=== PATIENT | male | born 1970 | race Caucasian/White ===

== ENCOUNTER 2019-05-04 18:20 | Emergency (ER) | payer OTHER ==
--- NOTE | 2019-05-04 21:51 | ER Document Report ---
ED Fall - General Chief Complaint: Laceration Stated Complaint: FALL/HEAD PAIN Time Seen by Provider: 05/04/19 19:29 Mode of Arrival: Medic Information source: Patient Notes: Patient is a 40-year-old male presenting to the emergency department from home via EMS with complaints of fall. Patient's mother reports that he rolled out of his bed and stretch truck the top of his head on his nightstand. EMS reports the patient was very combative so they had to give him medications for transport. TRAVEL OUTSIDE OF THE [place] IN LAST 30 DAYS: No - Related data Allergies/Adverse Reactions: No Known Allergies Allergy (Verified 02/28/16 14:38) Past Medical History - General Information source: Patient - Social History Smoking Status: Current Every Day Smoker Frequency of alcohol use: Heavy Drug Abuse: None Family History: None Patient has suicidal ideation: No Patient has homicidal ideation: No - Past Medical History Cardiac Medical History: Reports: Hx Hypertension Traumatic Medical History: Reports: Hx Fractures Surgical Hx: Negative - Immunizations Hx Diphtheria, Pertussis, Tetanus Vaccination: Yes Review of Systems - Review of Systems Constitutional: No symptoms reported EENT: No symptoms reported Cardiovascular: No symptoms reported Respiratory: No symptoms reported Gastrointestinal: No symptoms reported Genitourinary: No symptoms reported Male Genitourinary: No symptoms reported Musculoskeletal: No symptoms reported Skin: See HPI Hematologic/Lymphatic: No symptoms reported Neurological/Psychological: No symptoms reported Physical Exam - Vital signs Vitals: Pulse Resp BP 115 H 22 H 141/99 H 05/04/19 18:38 05/04/19 18:38 05/04/19 18:38 - Notes Notes: PHYSICAL EXAMINATION: GENERAL: Well-nourished. HEAD: 2 cm laceration to anterior scalp. EYES: Pupils equal round and reactive to light, extraocular movements intact, sclera anicteric, conjunctiva are normal. ENT: Nares patent, oropharynx clear without exudates. Moist mucous membranes. NECK: Normal range of motion, supple without lymphadenopathy LUNGS: Breath sounds clear to auscultation bilaterally and equal. No wheezes rales or rhonchi. HEART: Regular rate and rhythm without murmurs ABDOMEN: Soft, nontender, nondistended abdomen. No guarding, no rebound. No masses appreciated. Musculoskeletal: Normal range of motion, no pitting or edema. No cyanosis. NEUROLOGICAL: Cranial nerves grossly intact. Normal speech, normal gait. Normal sensory, motor exams PSYCH: angry, agressive SKIN: Warm, Dry, normal turgor, no rashes or lesions noted. See above. Course - Re-evaluation Re-evalutation: Patient was initially very aggressive at time of arrival, he was placed in four- point restraints. After several hours of rest patient has now awoken is alert, oriented, and speaking in full and complete sentences. Patient has allowed us to evaluate his scalp wound. This does not need closure. It is approximately 2 cm and very superficial. There is no active bleeding noted. Patient requesting to be discharged home. Patient calling for a ride. Patient is walking in a straight line with a steady gait, he is alert, oriented x4. - Vital Signs Vital signs: Temp Pulse Resp BP Pulse Ox 81 22 H 141/99 H 93 05/04/19 18:41 05/04/19 18:38 05/04/19 18:38 05/04/19 18:41 Discharge - Discharge Clinical Impression: Laceration Alcohol intoxication Qualifiers: Complication of substance-induced condition: uncomplicated Qualified Code(s): F10.920 - Alcohol use, unspecified with intoxication, uncomplicated Condition: Stable Disposition: HOME, SELF-CARE Additional Instructions: You were seen in the emergency department tonight after a fall. You sustained a laceration to your scalp. Please take Tylenol to for any pain or fever. Please return to the emergency department for any new or worsening symptoms, we are happy to reevaluate any time.
[2019-05-05 07:50] VITALS: BP 150/91
== END 2019-05-05 07:57 | disposition home or self-care (01) ==
LOC: ER 18:20
DX: S01.01XA Laceration without foreign body of scalp, initial encounter (principal); W06.XXXA Fall from bed, initial encounter; W22.03XA Walked into furniture, initial encounter; Y92.003 Bedroom of unspecified non-institutional (private) residence as the place of occurrence of the external cause; F10.120 Alcohol abuse with intoxication, uncomplicated; F17.200 Nicotine dependence, unspecified, uncomplicated; I10 Essential (primary) hypertension; Z78.1 Physical restraint status
CPT/HCPCS: 99284

== ENCOUNTER 2019-08-31 11:25 | Inpatient (IN) | payer SELFPAY ==
--- NOTE | 2019-08-31 11:34 | ER Document Report ---
ED Medical Screen (RME) - General Stated Complaint: POSSIBLE JAUNDICE - DR REFERRED Time Seen by Provider: 08/31/19 11:33 Information source: Patient - Patient referred from [facility] in [place] for apparent jaundice. TRAVEL OUTSIDE OF THE [place] IN LAST 30 DAYS: No - Related Data Allergies/Adverse Reactions: No Known Allergies Allergy (Verified 08/31/19 11:32) Past Medical History - Past Medical History Cardiac Medical History: Reports: Hx Hypertension Traumatic Medical History: Reports: Hx Fractures - Immunizations Hx Diphtheria, Pertussis, Tetanus Vaccination: Yes Physical Exam - HEENT Head: Normocephalic, Atraumatic Eyes: Normal Pupils: PERRL
[2019-08-31] MEDS ORDERED: NORMAL SALINE 1000 ML 1,000 ML IV PRN (11:35)
[2019-08-31 13:53] LABS: ABSOLUTE BASOPHILS # (AUTO) 0.1 10^3/uL (0.0-0.2); ABSOLUTE LYMPHOCYTES (AUTO) 1.2 10^3/uL (0.5-4.7); ABSOLUTE MONOCYTES (AUTO) 0.9 10^3/uL (0.1-1.4); ABSOLUTE NEUT (AUTO) 5.1 10^3/uL (1.7-8.2); BASOPHILS % (AUTO) 1.9 % (0-2); EOSINOPHILS % (AUTO) 0.6 % (0-6); HEMOGLOBIN 10.9 g/dL (13.5-17.0); LYMPHOCYTES % (AUTO) 16.9 % (13-45); MEAN CORPUSCULAR VOLUME 103 fl (80-97); MONOCYTES % (AUTO) 11.6 % (3-13); PLATELET COUNT 203 10^3/uL (150-450); RED BLOOD COUNT 3.11 10^6/uL (4.35-5.55); RED CELL DISTRIBUTION WIDTH 21.6 % (11.5-14.0); TOTAL CELLS COUNTED % (AUTO) 100 %; WHITE BLOOD COUNT 7.4 10^3/uL (4.0-10.5)
[2019-08-31 13:59] LABS: ALBUMIN 3.4 g/dL (3.5-5.0); ALKALINE PHOSPHATASE 163 U/L (38-126); ANION GAP 10 (5-19); ASPARTATE AMINO TRANSFERASE 190 U/L (17-59); BILIRUBIN,DIRECT 7.1 mg/dL (0.0-0.4); BILIRUBIN,TOTAL 9.6 mg/dL (0.2-1.3); BLOOD UREA NITROGEN 17 mg/dL (7-20); CALCIUM 8.1 mg/dL (8.4-10.2); CARBON DIOXIDE 21 mmol/L (22-30); CHLORIDE 101 mmol/L (98-107); GLUCOSE 107 mg/dL (75-110); POTASSIUM 4.4 mmol/L (3.6-5.0); TOTAL PROTEIN 7.1 g/dL (6.3-8.2)
--- NOTE | 2019-08-31 15:28 | RADIOLOGY REPORT (SQ) ---
EXAM DESCRIPTION: CT ABD/PELVIS WITH IV ONLY COMPLETED DATE/TIME: 08/31/2019 3:10 pm REASON FOR STUDY: jaundice COMPARISON: None. TECHNIQUE: CT scan of the abdomen and pelvis performed using helical scanning technique with dynamic intravenous contrast injection. No oral contrast. Images reviewed with lung, soft tissue, and bone windows. Reconstructed coronal and sagittal MPR images reviewed. Delayed images for evaluation of the urinary system also acquired. All images stored on PACS. All CT scanners at this facility use dose modulation, iterative reconstruction, and/or weight based d osing when appropriate to reduce radiation dose to as low as reasonably achievable (ALARA). [facility]: Dose Right [facility]: CareDose [facility]: Dose Right [facility]: Teradose 4D [facility]: Chiasma CONTRAST TYPE AND DOSE: contrast/concentration: Isovue 350.00 mg/ml; Total Contrast Delivered: 100.0 ml; Total Saline Delivered: 56.8 ml RENAL FUNCTION: Creatinine 0.7 RADIATION DOSE: CT Rad equipment meets quality standard of care and radiation dose reduction techniq ues were employed. CTDIvol: 16.7 - 18.3 mGy. DLP: 1854 mGy-cm.. LIMITATIONS: None. FINDINGS: LOWER CHEST: Moderate right, trace left pleural effusions. LIVER: Hepatomegaly with diffuse decreased attenuation from fatty infiltration. Normal enhancement o f the hepatic veins and portal veins. Recannulized umbilical vein. SPLEEN: Normal size PANCREAS: No masses. No significant calcifications. No adjacent inflammation or peripancreatic fluid collections. Pancreatic duct not dilated. GALLBLADDER: Stones in the gallbladder. No gross gallbladder wall thickening ADRENAL GLANDS: No significant masses or asymmetry. RIGHT KIDNEY AND URETER: No solid masses. No significant calcifications. No hydronephrosis or hyd roureter. LEFT KIDNEY AND URETER: No solid masses. No significant calcifications. No hydronephrosis or hydr oureter. AORTA AND VESSELS: No aneurysm. No dissection. Renal arteries, SMA, celiac without stenosis. RETROPERITONEUM: No retroperitoneal adenopathy, hemorrhage or masses. BOWEL AND PERITONEAL CAVITY: Moderate ascites. No CT evidence of bowel obstruction or free intraperi toneal air. APPENDIX: Not identified PELVIS: Moderate free pelvic fluid. Urinary bladder, rectum unremarkable. No adenopathy ABDOMINAL WALL: No masses. No hernias. BONES: No significant or acute findings. OTHER: Moderate ascites IMPRESSION: Hepatomegaly with marked decreased attenuation of the liver from fatty infiltration. Ascites and recannulized umbilical vein from portal hypertension Moderate right, trace left pleural effusion TECHNICAL DOCUMENTATION: JOB ID: [id number] Quality ID # [id number]: Final reports with documentation of one or more dose reduction techniques (e.g., Au tomated exposure control, adjustment of the mA and/or kV according to patient size, use of iterative reconstruction technique) 2010 [employer]- All Rights Reserved Reading location - IP/workstation name: [email or web address]
[2019-08-31] MEDS ORDERED: PROMETHAZINE HCL INJ 25 MG/1 ML VIAL IV PRN (15:45)
[2019-08-31] MEDS ORDERED: TEMAZEPAM 7.5 MG CAPSULE PO PRN (15:45)
[2019-08-31] MEDS ORDERED: OXYCODONE-ACETAMINOPHEN 5-325 MG TABLET PO PRN (15:45)
[2019-08-31] MEDS ORDERED: ACETAMINOPHEN 325 MG TABLET PO PRN (15:45)
[2019-08-31] MEDS ORDERED: ONDANSETRON HCL INJ/PF 4 MG/2 ML SDV IV PRN (15:45)
[2019-08-31] MEDS ORDERED: LEVALBUTEROL HCL NEB 0.63 MG/3 ML AMPUL NEB PRN (15:45)
--- NOTE | 2019-08-31 15:47 | ER Document Report ---
ED General - General Chief Complaint: Breathing Difficulty Stated Complaint: POSSIBLE JAUNDICE - DR REFERRED Time Seen by Provider: 08/31/19 11:33 Primary Care Provider: BLANCA DAILY PA-C [Primary Care Provider] - Follow up as needed TRAVEL OUTSIDE OF THE [place] IN LAST 30 DAYS: No - HPI Notes: Patient is a 49-year-old male with a long history of alcohol dependence who presents to the emergency department for evaluation of swelling. He went to see his primary care provider and Babak, who told him "you will be within the week if you do not go to the hospital." The patient states he has had increased swelling of the abdomen and legs over the last week or so. He really had not noticed the yellowing of his skin and eyes. He admits to drinking alcohol daily. He states he had 3 glasses of wine last night, and he has done so "his entire life." He denies the use of any other illicit drugs. He states he did have a seizure at some point last year. He denies any hallucinations, no sense of shakiness at this time. No melena or hematochezia. - Related Data Allergies/Adverse Reactions: No Known Allergies Allergy (Verified 08/31/19 11:32) Past Medical History - General Information source: Patient - Patient referred from [facility] in [facility] for apparent jaundice. - Social History Smoking Status: Current Every Day Smoker Chew tobacco use (# tins/day): No Frequency of alcohol use: Heavy Drug Abuse: None Family History: None Patient has suicidal ideation: No Patient has homicidal ideation: No - Past Medical History Cardiac Medical History: Reports: Hx Hypertension Traumatic Medical History: Reports: Hx Fractures - Immunizations Hx Diphtheria, Pertussis, Tetanus Vaccination: Yes Review of Systems - Review of Systems Constitutional: Weakness Gastrointestinal: See HPI Musculoskeletal: See HPI -: Yes All other systems reviewed and negative Physical Exam - Vital signs Vitals: Temp Pulse Resp BP Pulse Ox 98.4 F 114 H 18 118/81 100 08/31/19 11:33 08/31/19 11:33 08/31/19 11:33 08/31/19 11:33 08/31/19 11:33 - Notes Notes: This is a 49-year-old male who appears much older than his stated age. He smells strongly of cigarette smoke. Vital signs reviewed, please refer to chart. Head is normocephalic, atraumatic. Pupils equal round, reactive to light. Neck is supple without meningismus. Heart is regular rate and rhythm. Lungs are clear to auscultation bilaterally. Abdomen is distended with pitting edema to the skin, nontender, normoactive bowel sounds throughout. Extremities without cyanosis, clubbing. He has 3+ pitting edema to the thighs bilaterally. Posterior calves are nontender. Peripheral pulses are equal. Skin is warm and dry. Patient is awake, alert, neurological exam is nonfocal. Course - Re-evaluation Re-evalutation: 08/31/19 15:52 Patient is a 49-year-old male with a long history of alcohol dependence who presents to the emergency department for evaluation of swelling. His findings are consistent with liver failure. His total bilirubin is up significantly. He will need treatment for possible alcohol withdrawal, medical stabilization of his elevated bilirubins. He is amenable to admission. I spoke with Dr. Lopez, he will be admitted for further care. - Vital Signs Vital signs: Temp Pulse Resp BP Pulse Ox 98.4 F 114 H 18 118/81 100 08/31/19 11:33 08/31/19 11:33 08/31/19 11:33 08/31/19 11:33 08/31/19 11:33 - Laboratory Result Diagrams: 08/31/19 11:53 08/31/19 11:53 Laboratory results interpreted by me: 08/31/19 08/31/19 08/31/19 11:53 11:53 11:53 RBC 3.11 L Hgb 10.9 L Hct 32.0 L MCV 103 H MCH 35.0 H RDW 21.6 H Sodium 132.3 L Carbon Dioxide 21 L Calcium 8.1 L Total Bilirubin 9.6 H Direct Bilirubin 7.1 H AST 190 H ALT 75 H Alkaline Phosphatase 163 H Ammonia Albumin 3.4 L Lipase 860.1 H 08/31/19 12:14 RBC Hgb Hct MCV MCH RDW Sodium Carbon Dioxide Calcium Total Bilirubin Direct Bilirubin AST ALT Alkaline Phosphatase Ammonia < 8.7 L Albumin Lipase - Diagnostic Test Radiology reviewed: Reports reviewed Radiology results interpreted by me: 08/31/19 15:53 Abdomen/Pelvis CT 08/31/19 14:07 IMPRESSION: Hepatomegaly with marked decreased attenuation of the liver from fatty infiltration. Ascites and recannulized umbilical vein from portal hypertension Moderate right, trace left pleural effusion Discharge - Discharge Clinical Impression: Hyperbilirubinemia Liver failure Qualifiers: Liver failure chronicity: acute Hepatic coma status: without hepatic coma Qualified Code(s): K72.00 - Acute and subacute hepatic failure without coma Ascites Qualifiers: Ascites type: due to alcoholic hepatitis Qualified Code(s): K70.11 - Alcoholic hepatitis with ascites Condition: Stable Disposition: ADMITTED INPATIENT Admitting Provider: Jessica (Hospitalist) Unit Admitted: IMCU Referrals: BLANCA DAILY PA-C [Primary Care Provider] - Follow up as needed
[2019-08-31] MEDS ORDERED: LORAZEPAM INJ 2 MG/1 ML VIAL IV PRN (15:54)
[2019-08-31] MEDS ORDERED: HYDRALAZINE HCL INJ/PF 20 MG/1 ML SDV IV PRN (15:54)
[2019-08-31] MEDS ORDERED: METOPROLOL TARTRATE PF/INJ 5 MG/5 ML SDV IV PRN (15:54)
--- NOTE | 2019-08-31 16:47 | PDOC H&P ---
History of Present Illness Admission Date/PCP: 08/31/19 15:57 BLANCA DAILY PA-C History of Present Illness: MARIAH COHU is a 49 year old male Past medical history of alcohol dependency presenting to ED complaining of worsening shortness of breath, lower extremity edema and abdominal distention. Patient is a lifelong heavy drinker, drinks about 3 glasses of wine per night. Today he went to see his PCP and was told that he may not live for a week if he does not go to ED therefore he presented to ED. Patient stated that he did stop alcohol for 4 days however his lower extremity edema did not improve, he is stating that his abdomen is very uncomfortable, and he cannot lay flat because he gets short of breath, patient denies any abdominal pain, is not nauseous however feels very full, denies any fever, chills, chest pain, diarrhea, constipation or any urinary symptoms. Patient is alert and oriented x4, does not appear to be in acute respiratory distress however seems very uncomfortable and anxious, denies any visual or auditory hallucination or formication. Patient currently does not work, living with his mother. Past Medical History Cardiac Medical History: Reports: Hypertension Social History Smoking Status: Current Every Day Smoker Electronic Cigarette use?: No Family History Family History: None Parental Family History Reviewed: Yes Children Family History Reviewed: Yes Sibling(s) Family History Reviewed.: Yes Medication/Allergy Allergies/Adverse Reactions: No Known Allergies Allergy (Verified 08/31/19 11:32) Review of Systems Review of Systems: as per hpi Physical Exam Vital Signs: Temp Pulse Resp BP Pulse Ox 98.4 F 114 H 18 118/81 100 08/31/19 11:33 08/31/19 11:33 08/31/19 11:33 08/31/19 11:33 08/31/19 11:33 Intake & Output 08/30/19 08/31/19 09/01/19 06:59 06:59 06:59 Intake Total 1000 Balance 1000 Weight 98.9 kg General appearance: PRESENT: mild distress Head exam: PRESENT: atraumatic, normocephalic Respiratory exam: PRESENT: clear to auscultation hawa. ABSENT: rales, rhonchi, wheezes Cardiovascular exam: PRESENT: RRR, tachycardia. ABSENT: diastolic murmur, rubs, systolic murmur GI/Abdominal exam: PRESENT: distended, normal bowel sounds, soft, other - Positive fluid wave. ABSENT: guarding, mass, organolmegaly, rebound, tenderness Extremities exam: PRESENT: +2 edema Neurological exam: PRESENT: alert, awake, oriented to person, oriented to place, oriented to time, oriented to situation, CN II-XII grossly intact. ABSENT: motor sensory deficit Psychiatric exam: PRESENT: anxious Results Laboratory Results: 08/31/19 11:53 08/31/19 11:53 08/31/19 08/31/19 08/31/19 11:53 11:53 11:53 WBC 7.4 RBC 3.11 L Hgb 10.9 L Hct 32.0 L MCV 103 H MCH 35.0 H MCHC 34.0 RDW 21.6 H Plt Count 203 Seg Neutrophils % 69.0 Sodium 132.3 L Potassium 4.4 Chloride 101 Carbon Dioxide 21 L Anion Gap 10 BUN 17 Creatinine 0.73 Est GFR ( Amer) > 60 Glucose 107 Calcium 8.1 L Total Bilirubin 9.6 H AST 190 H Alkaline Phosphatase 163 H Ammonia Total Protein 7.1 Albumin 3.4 L Lipase 860.1 H 08/31/19 12:14 WBC RBC Hgb Hct MCV MCH MCHC RDW Plt Count Seg Neutrophils % Sodium Potassium Chloride Carbon Dioxide Anion Gap BUN Creatinine Est GFR ( Amer) Glucose Calcium Total Bilirubin AST Alkaline Phosphatase Ammonia < 8.7 L Total Protein Albumin Lipase 08/31/19 11:53 Troponin I < 0.012 Impressions: Abdomen/Pelvis CT 08/31/19 14:07 IMPRESSION: Hepatomegaly with marked decreased attenuation of the liver from fatty infiltration. Ascites and recannulized umbilical vein from portal hypertension Moderate right, trace left pleural effusion Assessment and Plan - Diagnosis (1) Acute alcoholic hepatitis Is this a current diagnosis for this admission?: Yes Plan: Presenting with total bilirubin 9.6, direct bili 7.1, AST 190, ALT 75, alkaline phosphatase 163, ammonia 8.7, albumin 3.4, lipase 860 CT abdomen positive for hepatomegaly and hepatic steatosis. No previous records available. Most likely due to chronic alcohol abuse. Denies any history of hepatitis. Admit to [facility]. Implement fall, seizure and aspiration precautions. Monitor for bleeding. Monitor mental status and vitals. Monitor LFTs. (2) Alcohol abuse Is this a current diagnosis for this admission?: Yes Plan: Chronic severe lifelong EtOH dependency. Last EtOH check last night. Denies any history of DTs or seizures. Any auditory visual hallucination or any formication. Admit to IMCU, folic acid, thiamine, monitor for DT. Admit fall, seizure and aspiration precautions. Consult discharge planning for any needs. (3) Anasarca Is this a current diagnosis for this admission?: Yes Plan: Due to severe alcoholic hepatitis. Presenting with severe ascites with positive fluid wave. Bilateral lower extremity 3+ edema extending to scrotum. IV diuretics guided by volume status, strict in and out, fluid restriction, daily paracentesis.
[2019-08-31 17:22] LABS: APPEARANCE,URINE CLEAR; BILIRUBIN,URINE MODERATE (NEGATIVE); COLOR,URINE AMBER; GLUCOSE, URINE NEGATIVE (NEGATIVE); KETONES,URINE TRACE mg/dL (NEGATIVE); LEUKOCYTE ESTERASE,URINE NEGATIVE (NEGATIVE); NITRITE,URINE NEGATIVE (NEGATIVE); PROTEIN,URINE 30 mg/dL (NEGATIVE)
[2019-08-31 17:47] LABS: URINE SPECIFIC GRAVITY > 1.060
[2019-08-31 17:49] LABS: INTERNATIONAL RATION (INR) 1.25; PROTHROMBIN TIME 15.8 SEC (11.4-15.4)
[2019-08-31] MEDS: THIAMINE HCL 100 MG TABLET PO SCH (18:51)
[2019-08-31] MEDS: FOLIC ACID 1 MG TABLET PO SCH (18:52)
[2019-08-31] MEDS: HEPARIN SOD (PORCINE) 5,000 UNIT/ML 1 ML VIAL SUBCUT SCH (21:24)
[2019-08-31] MEDS: PANTOPRAZOLE SODIUM 40 MG VIAL IV SCH (21:31)
[2019-08-31] MEDS: FUROSEMIDE INJ/PF 40 MG/4 ML SDV IV SCH (21:31)
[2019-09-01] MEDS: HEPARIN SOD (PORCINE) 5,000 UNIT/ML 1 ML VIAL SUBCUT SCH ×3 (05:13→21:36)
[2019-09-01] MEDS: FUROSEMIDE INJ/PF 40 MG/4 ML SDV IV SCH ×3 (05:14→21:36)
[2019-09-01 05:55] LABS: HEMATOCRIT 28.5 % (37.9-51.0); HEMOGLOBIN 9.9 g/dL (13.5-17.0); INTERNATIONAL RATION (INR) 1.29; MEAN CORPUSCULAR HEMOGLOBIN 35.6 pg (27.0-33.4); MEAN CORPUSCULAR HGB CONC 34.6 g/dL (32.0-36.0); MEAN CORPUSCULAR VOLUME 103 fl (80-97); PLATELET COUNT 183 10^3/uL (150-450); PROTHROMBIN TIME 16.2 SEC (11.4-15.4); RED BLOOD COUNT 2.78 10^6/uL (4.35-5.55); RED CELL DISTRIBUTION WIDTH 21.8 % (11.5-14.0); WHITE BLOOD COUNT 5.8 10^3/uL (4.0-10.5)
[2019-09-01 06:14] LABS: ALBUMIN 2.8 g/dL (3.5-5.0); ALKALINE PHOSPHATASE 122 U/L (38-126); ANION GAP 9 (5-19); ASPARTATE AMINO TRANSFERASE 139 U/L (17-59); BILIRUBIN,DIRECT 5.7 mg/dL (0.0-0.4); BILIRUBIN,TOTAL 7.6 mg/dL (0.2-1.3); BLOOD UREA NITROGEN 16 mg/dL (7-20); CALCIUM 7.7 mg/dL (8.4-10.2); CARBON DIOXIDE 24 mmol/L (22-30); CHLORIDE 102 mmol/L (98-107); GLUCOSE 88 mg/dL (75-110); TOTAL PROTEIN 6.1 g/dL (6.3-8.2)
[2019-09-01 06:19] LABS: POTASSIUM 3.4 mmol/L (3.6-5.0)
[2019-09-01 06:32] LABS: ABSOLUTE LYMPHOCYTES# (MANUAL) 0.6 10^3/uL (0.5-4.7); ABSOLUTE MONOCYTES # (MANUAL) 0.4 10^3/uL (0.1-1.4); BASOPHILS % (MANUAL) 3 % (0-2); EOSINOPHILS % (MANUAL) 4 % (0-6); LYMPHOCYTES % (MANUAL) 9 % (13-45); MONOCYTES % (MANUAL) 7 % (3-13); SEGMENTED NEUTROPHILS % (MAN) 76 % (42-78); TOTAL CELLS COUNTED 100
[2019-09-01 06:33] LABS: ANISOCYTOSIS 3+
[2019-09-01 06:34] LABS: PLATELET COMMENT ADEQUATE
[2019-09-01 06:35] LABS: OVALOCYTES SLIGHT; TARGET CELLS SLIGHT
[2019-09-01] MEDS ORDERED: POTASSIUM CHLORIDE 10 MEQ TABLET.ER PO ONE ×2 (07:26→10:30)
--- NOTE | 2019-09-01 09:15 | PDOC PROGRESS REPORT ---
Subjective Progress Note for:: 09/01/19 Subjective:: MARIAH CHOU is a 49 year old male Past medical history of alcohol dependency presenting to ED complaining of worsening shortness of breath, lower extremity edema and abdominal distention. Patient is a lifelong heavy drinker, drinks about 3 glasses of wine per night. Today he went to see his PCP and was told that he may not live for a week if he does not go to ED therefore he presented to ED. Patient stated that he did stop alcohol for 4 days however his lower extremity edema did not improve, he is stating that his abdomen is very uncomfortable, and he cannot lay flat because he gets short of breath, patient denies any abdominal pain, is not nauseous however feels very full, denies any fever, chills, chest pain, diarrhea, constipation or any urinary symptoms. Patient is alert and oriented x4, does not appear to be in acute respiratory distress however seems very uncomfortable and anxious, denies any visual or auditory hallucination or formication. Patient currently does not work, living with his mother. 09/01/2019. No acute events overnight. Reporting mild improvement of shortness of breath, sleeping comfortably in bed, supine, denies any orthopnea or PND, still complaining of abdominal distention and bilateral lower extremity edema, is scheduled to have therapeutic paracentesis by IR today. Denies any fever, chills, nausea, vomiting, diarrhea, abdominal pain or any urinary symptoms. Reason For Visit: ALCOHOLIC HEPATITIS/ALCOHOL INTOXICATION Physical Exam Vital Signs: Temp Pulse Resp BP Pulse Ox 98.1 F 101 H 18 93/54 L 100 09/01/19 08:33 09/01/19 08:33 09/01/19 08:33 09/01/19 08:33 09/01/19 08:33 Intake & Output 08/31/19 09/01/19 09/02/19 06:59 06:59 06:59 Intake Total 1572 Output Total 925 Balance 647 Weight 98 kg General appearance: PRESENT: no acute distress, well-developed, well-nourished Head exam: PRESENT: atraumatic, normocephalic Neck exam: ABSENT: carotid bruit, JVD, lymphadenopathy, thyromegaly Respiratory exam: PRESENT: clear to auscultation hawa. ABSENT: rales, rhonchi, wheezes Cardiovascular exam: PRESENT: RRR. ABSENT: diastolic murmur, rubs, systolic murmur GI/Abdominal exam: PRESENT: ascites, distended, normal bowel sounds, soft. ABSENT: guarding, mass, organolmegaly, rebound, tenderness Extremities exam: PRESENT: +2 edema Neurological exam: PRESENT: alert, awake, oriented to person, oriented to place, oriented to time, oriented to situation, CN II-XII grossly intact. ABSENT: motor sensory deficit Results Laboratory Results: 09/01/19 04:45 09/01/19 04:45 08/31/19 08/31/19 08/31/19 11:53 11:53 11:53 WBC 7.4 RBC 3.11 L Hgb 10.9 L Hct 32.0 L MCV 103 H MCH 35.0 H MCHC 34.0 RDW 21.6 H Plt Count 203 Seg Neutrophils % 69.0 Sodium 132.3 L Potassium 4.4 Chloride 101 Carbon Dioxide 21 L Anion Gap 10 BUN 17 Creatinine 0.73 Est GFR ( Amer) > 60 Glucose 107 Calcium 8.1 L Magnesium Total Bilirubin 9.6 H AST 190 H Alkaline Phosphatase 163 H Ammonia Total Protein 7.1 Albumin 3.4 L Lipase 860.1 H Urine Color Urine Appearance Urine pH Ur Specific [place] Urine Protein Urine Glucose (UA) Urine Ketones Urine Blood Urine Nitrite Ur Leukocyte Esterase Urine WBC (Auto) Urine RBC (Auto) 08/31/19 08/31/19 09/01/19 12:14 16:45 04:45 WBC 5.8 RBC 2.78 L Hgb 9.9 L Hct 28.5 L MCV 103 H MCH 35.6 H MCHC 34.6 RDW 21.8 H Plt Count 183 Seg Neutrophils % Not Reportable Sodium Potassium Chloride Carbon Dioxide Anion Gap BUN Creatinine Est GFR ( Amer) Glucose Calcium Magnesium Total Bilirubin AST Alkaline Phosphatase Ammonia < 8.7 L Total Protein Albumin Lipase Urine Color [place] Urine Appearance CLEAR Urine pH 6.0 Ur Specific [place] > 1.060 Urine Protein 30 H Urine Glucose (UA) NEGATIVE Urine Ketones TRACE H Urine Blood NEGATIVE Urine Nitrite NEGATIVE Ur Leukocyte Esterase NEGATIVE Urine WBC (Auto) 4 Urine RBC (Auto) 2 09/01/19 04:45 WBC RBC Hgb Hct MCV MCH MCHC RDW Plt Count Seg Neutrophils % Sodium 134.6 L Potassium 3.4 L D Chloride 102 Carbon Dioxide 24 Anion Gap 9 BUN 16 Creatinine 0.69 Est GFR ( Amer) > 60 Glucose 88 Calcium 7.7 L Magnesium 2.1 Total Bilirubin 7.6 H AST 139 H Alkaline Phosphatase 122 Ammonia Total Protein 6.1 L Albumin 2.8 L Lipase 1083.4 H Urine Color Urine Appearance Urine pH Ur Specific [place] Urine Protein Urine Glucose (UA) Urine Ketones Urine Blood Urine Nitrite Ur Leukocyte Esterase Urine WBC (Auto) Urine RBC (Auto) 08/31/19 11:53 Troponin I < 0.012 Impressions: Abdomen/Pelvis CT 08/31/19 14:07 IMPRESSION: Hepatomegaly with marked decreased attenuation of the liver from fatty infiltration. Ascites and recannulized umbilical vein from portal hypertension Moderate right, trace left pleural effusion Assessment and Plan - Diagnosis (1) Acute alcoholic hepatitis Is this a current diagnosis for this admission?: Yes Plan: Mild improvement. No sign of encephalopathy. PT/INR WNL. No sign of bleeding. LFTs trending down. Hepatitis discriminant factor 27.0. Child Aldridge classification score 10 grade C. Presented with t.bili 9.6, AST 190, ALT 75, alk [id number], Albumimn 3.4 CT abdomen positive for hepatomegaly and hepatic steatosis. No previous records available. Most likely due to chronic alcohol abuse. Denies any history of hepatitis. Continue telemetry. Implement fall, seizure and aspiration precautions. Monitor for bleeding. Monitor mental status and vitals. Monitor LFTs. (2) Alcohol abuse Is this a current diagnosis for this admission?: Yes Plan: Denies any visual or auditory hallucinations. Denies any anxiety. Chronic severe lifelong EtOH dependency. Last EtOH intake 1 day prior to admission. Denies any history of DTs or seizures. Continue to IMCU, folic acid, thiamine, monitor for DT. Implement fall, seizure and aspiration precautions. Consult discharge planning for any needs. (3) Anasarca Is this a current diagnosis for this admission?: Yes Plan: Orthopnea improving. Persistent severe ascites with positive fluid level and 3+ pitting edema. Due to severe alcoholic hepatitis. Presented with severe ascites with positive fluid wave. Orthopnea. Bilateral lower extremity 3+ edema extending to scrotum. Continue IV diuretics, diuretics guided by volume status, strict in and out, fluid restriction. Pending therapeutic paracentesis by IR. (4) Elevated lipase Is this a current diagnosis for this admission?: Yes Plan: Patient has elevated lipase in the absence of any abdominal pain, nausea or vomiting. Likely mild pancreatitis but unfortunately patient is presenting with anasarca, orthopnea, and severe ascites and needs to be diuresed. Monitor volume status. Monitor vitals. Monitor electrolytes. Continue supportive measures. (5) Hypokalemia Is this a current diagnosis for this admission?: Yes Plan: Likely due to low p.o. intake. No acute EKG changes. Continue daily replacement. Daily potassium level.
[2019-09-01] MEDS: FOLIC ACID 1 MG TABLET PO SCH (10:18)
[2019-09-01] MEDS: THIAMINE HCL 100 MG TABLET PO SCH (10:18)
[2019-09-01] MEDS: PANTOPRAZOLE SODIUM 40 MG VIAL IV SCH ×2 (10:18→21:37)
[2019-09-01 13:11] LABS: FLUID COLOR YELLOW; FLUID SOURCE ASCITES; FLUID TYPE PERITONEAL
[2019-09-01 13:12] LABS: FLUID APPEARANCE CLEAR; FLUID VISCOSITY LIQUID
--- NOTE | 2019-09-01 13:54 | EKG REPORT ---
SEVERITY:- ABNORMAL ECG - SINUS TACHYCARDIA NONSPECIFIC INTRAVENTRICULAR CONDUCTION DELAY OF LBBB TYPE LIMB LEAD REVERSAL : Confirmed by: Annabelle Quinones MD 01-Sep-2019 13:53:57
[2019-09-02] MEDS: HEPARIN SOD (PORCINE) 5,000 UNIT/ML 1 ML VIAL SUBCUT SCH ×3 (05:38→21:24)
[2019-09-02] MEDS: FUROSEMIDE INJ/PF 40 MG/4 ML SDV IV SCH ×2 (05:40→17:13)
[2019-09-02 06:33] LABS: ABSOLUTE EOSINOPHILS # (AUTO) 0.1 10^3/uL (0.0-0.6); ABSOLUTE LYMPHOCYTES (AUTO) 1.3 10^3/uL (0.5-4.7); ABSOLUTE MONOCYTES (AUTO) 0.8 10^3/uL (0.1-1.4); ABSOLUTE NEUT (AUTO) 3.8 10^3/uL (1.7-8.2); BASOPHILS % (AUTO) 0.6 % (0-2); EOSINOPHILS % (AUTO) 1.5 % (0-6); HEMATOCRIT 28.3 % (37.9-51.0); HEMOGLOBIN 9.7 g/dL (13.5-17.0); LYMPHOCYTES % (AUTO) 21.4 % (13-45); MEAN CORPUSCULAR HEMOGLOBIN 35.4 pg (27.0-33.4); MEAN CORPUSCULAR HGB CONC 34.3 g/dL (32.0-36.0); MEAN CORPUSCULAR VOLUME 103 fl (80-97); MONOCYTES % (AUTO) 13.4 % (3-13); PLATELET COUNT 204 10^3/uL (150-450); RED BLOOD COUNT 2.74 10^6/uL (4.35-5.55); RED CELL DISTRIBUTION WIDTH 21.3 % (11.5-14.0); SEGMENTED NEUTROPHILS % (AUTO) 63.1 % (42-78); TOTAL CELLS COUNTED % (AUTO) 100 %
[2019-09-02 06:51] LABS: ALBUMIN 2.7 g/dL (3.5-5.0); ALKALINE PHOSPHATASE 106 U/L (38-126); ANION GAP 9 (5-19); ASPARTATE AMINO TRANSFERASE 142 U/L (17-59); BILIRUBIN,DIRECT 4.3 mg/dL (0.0-0.4); BLOOD UREA NITROGEN 15 mg/dL (7-20); CALCIUM 7.6 mg/dL (8.4-10.2); CARBON DIOXIDE 28 mmol/L (22-30); CHLORIDE 101 mmol/L (98-107); GLUCOSE 86 mg/dL (75-110); TOTAL PROTEIN 6.4 g/dL (6.3-8.2)
[2019-09-02 07:36] LABS: HEPATITS B SURFACE ANTIGEN Negative (Negative)
[2019-09-02] MEDS: PANTOPRAZOLE SODIUM 40 MG VIAL IV SCH ×2 (09:09→21:24)
[2019-09-02] MEDS: FOLIC ACID 1 MG TABLET PO SCH (09:10)
[2019-09-02] MEDS: THIAMINE HCL 100 MG TABLET PO SCH (09:10)
[2019-09-02] MEDS ORDERED: FUROSEMIDE INJ/PF 20 MG/2 ML SDV IV ONE (09:30)
[2019-09-02] MEDS ORDERED: POTASSIUM CHLORIDE 10 MEQ TABLET.ER PO ONE (10:00)
--- NOTE | 2019-09-02 10:38 | PDOC PROGRESS REPORT ---
Subjective Progress Note for:: 09/02/19 Subjective:: MARIAH CHOU is a 49 year old male Past medical history of alcohol dependency presenting to ED complaining of worsening shortness of breath, lower extremity edema and abdominal distention. Patient is a lifelong heavy drinker, drinks about 3 glasses of wine per night. Today he went to see his PCP and was told that he may not live for a week if he does not go to ED therefore he presented to ED. Patient stated that he did stop alcohol for 4 days however his lower extremity edema did not improve, he is stating that his abdomen is very uncomfortable, and he cannot lay flat because he gets short of breath, patient denies any abdominal pain, is not nauseous however feels very full, denies any fever, chills, chest pain, diarrhea, constipation or any urinary symptoms. Patient is alert and oriented x4, does not appear to be in acute respiratory distress however seems very uncomfortable and anxious, denies any visual or auditory hallucination or formication. Patient currently does not work, living with his mother. 09/01/2019. No acute events overnight. Reporting mild improvement of shortness of breath, sleeping comfortably in bed, supine, denies any orthopnea or PND, still complaining of abdominal distention and bilateral lower extremity edema, is scheduled to have therapeutic paracentesis by IR today. Denies any fever, chills, nausea, vomiting, diarrhea, abdominal pain or any urinary symptoms. 09/02/2019. No acute events overnight significant improvement of anasarca, status post paracentesis by radiology 2 L removed, lower extremity edema i mproving, patient comfortably resting up in apparent distress enjoying his breakfast. Denies any fever, chills, nausea, vomiting, diarrhea, constipation or any urinary symptoms. Potential discharge home tomorrow. Reason For Visit: ALCOHOLIC HEPATITIS/ALCOHOL INTOXICATION Physical Exam Vital Signs: Temp Pulse Resp BP Pulse Ox 98.0 F 95 18 116/72 98 09/02/19 07:18 09/02/19 07:18 09/02/19 07:18 09/02/19 07:18 09/02/19 07:18 Intake & Output 09/01/19 09/02/19 09/03/19 06:59 06:59 06:59 Intake Total 1572 1175 Output Total 925 3900 Balance 074 -4270 Weight 98 kg 87.9 kg General appearance: PRESENT: no acute distress, well-developed, well-nourished Head exam: PRESENT: atraumatic, normocephalic Neck exam: ABSENT: carotid bruit, JVD, lymphadenopathy, thyromegaly Respiratory exam: PRESENT: clear to auscultation hawa. ABSENT: rales, rhonchi, wheezes GI/Abdominal exam: PRESENT: normal bowel sounds, soft. ABSENT: distended, guarding, mass, organolmegaly, rebound, tenderness Extremities exam: PRESENT: +2 edema Neurological exam: PRESENT: alert, awake, oriented to person, oriented to place, oriented to time, oriented to situation, CN II-XII grossly intact. ABSENT: motor sensory deficit Results Laboratory Results: 09/02/19 05:40 09/02/19 05:40 09/01/19 09/02/19 09/02/19 11:13 05:40 05:40 WBC 6.0 RBC 2.74 L Hgb 9.7 L Hct 28.3 L MCV 103 H MCH 35.4 H MCHC 34.3 RDW 21.3 H Plt Count 204 Seg Neutrophils % 63.1 Sodium 137.5 Potassium 3.0 L* Chloride 101 Carbon Dioxide 28 Anion Gap 9 BUN 15 Creatinine 0.66 Est GFR ( Amer) > 60 Glucose 86 Calcium 7.6 L Magnesium 1.6 Total Bilirubin 6.0 H AST 142 H Alkaline Phosphatase 106 Total Protein 6.4 Albumin 2.7 L Lipase 845.8 H Fluid Type PERITONEAL Fluid Source ASCITES Fluid Color YELLOW Fluid Appearance CLEAR Fluid Viscosity LIQUID Fluid WBC 51 Fluid RBC 840 08/31/19 11:53 Troponin I < 0.012 Impressions: Abdomen/Pelvis CT 08/31/19 14:07 IMPRESSION: Hepatomegaly with marked decreased attenuation of the liver from fatty infiltration. Ascites and recannulized umbilical vein from portal hypertension Moderate right, trace left pleural effusion Assessment and Plan - Diagnosis (1) Anasarca Is this a current diagnosis for this admission?: Yes Plan: Moderate improvement. Orthopnea resolved. Mild improvement of ascites since paracentesis. Status post paracentesis 09/01/2019. 2 L removed. Persistent ascites with 2+ pitting edema. Denies any abdominal pain. Due to severe alcoholic hepatitis. Presented with severe ascites with positive fluid wave. Orthopnea. Bilateral lower extremity 3+ edema extending to scrotum. Continue IV diuretics, diuretics guided by volume status, strict in and out, fluid restriction. (2) Alcohol abuse Is this a current diagnosis for this admission?: Yes Plan: Denies any visual or auditory hallucinations. Denies any anxiety. Chronic severe lifelong EtOH dependency. Last EtOH intake 1 day prior to admission. Denies any history of DTs or seizures. Continue to folic acid, thiamine, monitor for DT. Implement fall, seizure and aspiration precautions. Consult discharge planning for any needs. (3) Acute alcoholic hepatitis Is this a current diagnosis for this admission?: Yes Plan: Mild improvement. No sign of encephalopathy. PT/INR WNL. No sign of bleeding. LFTs trending down. Hepatitis discriminant factor 27.0. Child Aldridge classification score 10 grade C. Presented with t.bili 9.6, AST 190, ALT 75, alk [id number], Albumimn 3.4 CT abdomen positive for hepatomegaly and hepatic steatosis. No previous records available. Most likely due to chronic alcohol abuse. Denies any history of hepatitis. Continue telemetry. Implement fall, seizure and aspiration precautions. Monitor for bleeding. Monitor mental status and vitals. Monitor LFTs. (4) Elevated lipase Is this a current diagnosis for this admission?: Yes Plan: LFTs trending down. Lipase trending down. Denies any abdominal pain. P.o. tolerant. Likely mild pancreatitis but unfortunately patient is presenting with anasarca, orthopnea, and severe ascites and needs to be diuresed. Monitor volume status. Monitor vitals. Monitor electrolytes. Continue supportive measures. (5) Hypokalemia Is this a current diagnosis for this admission?: Yes Plan: Likely due to low p.o. intake. No acute EKG changes. Continue daily replacement. Daily potassium level.
[2019-09-02 13:10] LABS: HEPATITIS C VIRUS ANTIBODY 0.1 s/co ratio (0.0-0.9)
[2019-09-03 05:15] LABS: ALBUMIN 2.7 g/dL (3.5-5.0); ALKALINE PHOSPHATASE 104 U/L (38-126); ANION GAP 7 (5-19); ASPARTATE AMINO TRANSFERASE 130 U/L (17-59); BILIRUBIN,TOTAL 5.6 mg/dL (0.2-1.3); BLOOD UREA NITROGEN 14 mg/dL (7-20); CALCIUM 7.6 mg/dL (8.4-10.2); CARBON DIOXIDE 33 mmol/L (22-30); CHLORIDE 99 mmol/L (98-107); GLUCOSE 92 mg/dL (75-110); TOTAL PROTEIN 6.2 g/dL (6.3-8.2)
[2019-09-03 05:28] LABS: POTASSIUM 2.7 mmol/L (3.6-5.0)
[2019-09-03] MEDS ORDERED: POTASSIUM CHLORIDE 10 MEQ TABLET.ER PO ONE (06:00)
[2019-09-03] MEDS: HEPARIN SOD (PORCINE) 5,000 UNIT/ML 1 ML VIAL SUBCUT SCH ×3 (06:54→23:09)
[2019-09-03 07:02] LABS: TOTAL PROTEIN BODY FLUID 1.5 g/dL (.)
--- NOTE | 2019-09-03 08:03 | RADIOLOGY REPORT (SQ) ---
EXAM DESCRIPTION: U/S ABD PARACENTESIS COMPLETED DATE/TIME: 09/01/2019 12:07 pm REASON FOR STUDY: Severe ascites, alcoholic hepatitis, SOB COMPARISON: None. LIMITATIONS: None. PROCEDURE: Procedure, risks, benefit, and alternative explained to patient who then gave written con sent. The left lower abdominal wall marked using ultrasound guidance. A time-out was called for cor rect marking verification. Abdomen prepped and draped using sterile technique. Local anesthesia achi eved using 7 ml of 1% lidocaine injection. A 6fr [id number] set was introduced into the periton eal cavity. Fluid was drained. The catheter was removed and entry site was covered with sterile ban dage. No immediate complications noted. Images acquired during the procedure were stored on PACS. FINDINGS: ENTRY SITE: left lower quadrant. FLUID VOLUME: 3,000 FLUID ANALYSIS: Straw-colored OTHER: Fluid sent to the lab for testing. IMPRESSION: SUCCESSFUL ULTRASOUND GUIDED PARACENTESIS. COMMENT: Patient medication list reviewed:Yes- Quality ID# [id number]:Eligible professional attests to docu menting in the medical record they obtained, updated, or reviewed the patient's current medications. TECHNICAL DOCUMENTATION: JOB ID: [id number] 2010 [employer]- All Rights Reserved Reading location - IP/workstation name: [email or web address]
[2019-09-03] MEDS: POTASSI CL 20 MEQ/50 ML RIDER 20 MEQ/50 ML RTUPB IV SCH ×3 (10:02→14:04)
[2019-09-03] MEDS: THIAMINE HCL 100 MG TABLET PO SCH (10:14)
[2019-09-03] MEDS: FOLIC ACID 1 MG TABLET PO SCH (10:14)
[2019-09-03] MEDS: FUROSEMIDE INJ/PF 40 MG/4 ML SDV IV SCH (10:14)
[2019-09-03] MEDS: PANTOPRAZOLE SODIUM 40 MG VIAL IV SCH ×2 (10:14→23:08)
[2019-09-03] MEDS: POTASSIUM CHLORIDE 10 MEQ TABLET.ER PO SCH ×2 (10:17→17:54)
[2019-09-03] MEDS ORDERED: POTASSIUM CHLORIDE 10 MEQ TABLET.ER PO SCH (12:00)
--- NOTE | 2019-09-03 14:27 | PDOC PROGRESS REPORT ---
Subjective Progress Note for:: 09/03/19 Subjective:: Patient feels well today. Denies any shortness of breath at this time. States that his swelling is significantly improved as compared to admission. Denies any pain at this time. Denies any nausea vomiting or diarrhea. Reason For Visit: ALCOHOLIC HEPATITIS/ALCOHOL INTOXICATION Physical Exam Vital Signs: Temp Pulse Resp BP Pulse Ox 98.7 F 91 14 117/82 99 09/03/19 08:00 09/03/19 08:00 09/03/19 08:00 09/03/19 08:00 09/03/19 12:46 Intake & Output 09/02/19 09/03/19 09/04/19 06:59 06:59 06:59 Intake Total 1175 1060 120 Output Total 3900 2700 1225 Balance -6284 -3390 -1105 Weight 87.9 kg 84.4 kg General appearance: PRESENT: no acute distress, cooperative Neck exam: ABSENT: JVD Respiratory exam: PRESENT: clear to auscultation hawa, unlabored. ABSENT: tachypnea, wheezes Cardiovascular exam: PRESENT: RRR, +S1, +S2. ABSENT: tachycardia GI/Abdominal exam: PRESENT: ascites, distended, organolmegaly - Hepatomegaly palpable, soft. ABSENT: firm, guarding, rebound, rigid, tenderness Neurological exam: PRESENT: alert, awake, oriented to person, oriented to place, oriented to time, oriented to situation Psychiatric exam: ABSENT: agitated, anxious Results Laboratory Results: 09/02/19 05:40 09/03/19 04:44 09/01/19 09/03/19 11:13 04:44 Sodium 139.1 Potassium 2.7 L* Chloride 99 Carbon Dioxide 33 H Anion Gap 7 BUN 14 Creatinine 0.54 Est GFR ( Amer) > 60 Glucose 92 Calcium 7.6 L Total Bilirubin 5.6 H AST 130 H Alkaline Phosphatase 104 Total Protein 6.2 L Albumin 2.7 L Fluid Total Protein 1.5 Fluid LDH 130 08/31/19 11:53 Troponin I < 0.012 Impressions: Abdomen/Pelvis CT 08/31/19 14:07 IMPRESSION: Hepatomegaly with marked decreased attenuation of the liver from fatty infiltration. Ascites and recannulized umbilical vein from portal hypertension Moderate right, trace left pleural effusion Paracentesis Ultrasound 09/01/19 16:10 IMPRESSION: SUCCESSFUL ULTRASOUND GUIDED PARACENTESIS. Assessment and Plan - Diagnosis (1) Anasarca Is this a current diagnosis for this admission?: Yes Plan: Secondary to chronic liver disease. Receiving diuresis with Lasix and has shown significant improvement in terms of swelling. Had paracentesis done on 09/01/2019 with 2 L of ascites fluid removed. Fluid and sodium restriction. We will change diuretics from IV to p.o. spironolactone 50 mg twice daily and Lasix 20 mg twice daily (2) Hypokalemia Is this a current diagnosis for this admission?: Yes Plan: Patient denies nausea vomiting or diarrhea. Likely hypokalemia being worsened by diuretics. Potassium is 2.7 today. We will replete aggressively with potassium chloride IV and p.o. and recheck BMP with magnesium level later today. We will also add spironolactone for potassium sparing and discontinue IV Lasix. (3) Acute alcoholic hepatitis Is this a current diagnosis for this admission?: Yes Plan: Improved. No sign of encephalopathy. PT/INR WNL. No sign of bleeding. LFTs trending down. Maddrey discriminant factor 27.0. Child Aldridge classification score [address] abdomen positive for hepatomegaly and hepatic steatosis. Patient will need outpatient follow-up with director of rehabilitative services and has been encouraged of the significance of alcohol abstinence. (4) Alcohol abuse Is this a current diagnosis for this admission?: Yes Plan: Monitor for withdrawal. Continue to folic acid, thiamine, monitor for DT. (5) Elevated lipase Is this a current diagnosis for this admission?: Yes Plan: Isolated finding without CT findings of pancreatitis. Does not fully meet diagnostic criteria for acute pancreatitis. - Time Time Spent with patient: 15-24 minutes
[2019-09-03 17:40] LABS: ANION GAP 9 (5-19); BLOOD UREA NITROGEN 14 mg/dL (7-20); CARBON DIOXIDE 31 mmol/L (22-30); CHLORIDE 98 mmol/L (98-107); GLUCOSE 84 mg/dL (75-110); POTASSIUM 3.2 mmol/L (3.6-5.0)
[2019-09-03] MEDS: SPIRONOLACTONE 25 MG TABLET PO SCH (17:53)
[2019-09-03] MEDS: FUROSEMIDE 20 MG TABLET PO SCH (17:54)
[2019-09-03] MEDS ORDERED: FUROSEMIDE INJ/PF 100 MG/10 ML SDV IV SCH (18:00)
[2019-09-03] MEDS ORDERED: MAGNESIUM SULFATE 4 GM/100 ML RTUPB IV ONE (19:30)
[2019-09-03] MEDS ORDERED: POTASSI CL 20 MEQ/50 ML RIDER 20 MEQ/50 ML RTUPB IV ONE (19:30)
[2019-09-04] MEDS: POTASSIUM CHLORIDE 10 MEQ TABLET.ER PO SCH (01:00)
[2019-09-04] MEDS: HEPARIN SOD (PORCINE) 5,000 UNIT/ML 1 ML VIAL SUBCUT SCH (06:03)
[2019-09-04 06:11] LABS: ALBUMIN 2.9 g/dL (3.5-5.0); ALKALINE PHOSPHATASE 108 U/L (38-126); ANION GAP 7 (5-19); ASPARTATE AMINO TRANSFERASE 119 U/L (17-59); BILIRUBIN,DIRECT 3.9 mg/dL (0.0-0.4); BILIRUBIN,TOTAL 5.7 mg/dL (0.2-1.3); BLOOD UREA NITROGEN 14 mg/dL (7-20); CALCIUM 7.7 mg/dL (8.4-10.2); CARBON DIOXIDE 27 mmol/L (22-30); CHLORIDE 105 mmol/L (98-107); GLUCOSE 92 mg/dL (75-110); POTASSIUM 4.1 mmol/L (3.6-5.0); TOTAL PROTEIN 6.2 g/dL (6.3-8.2)
[2019-09-04] MEDS: SPIRONOLACTONE 25 MG TABLET PO SCH (09:14)
[2019-09-04] MEDS: FUROSEMIDE 20 MG TABLET PO SCH (09:14)
[2019-09-04] MEDS: THIAMINE HCL 100 MG TABLET PO SCH (09:15)
[2019-09-04] MEDS: FOLIC ACID 1 MG TABLET PO SCH (09:15)
[2019-09-04] MEDS: PANTOPRAZOLE SODIUM 40 MG VIAL IV SCH (09:15)
[2019-09-04] MEDS ORDERED: FUROSEMIDE 20 MG TABLET PO SCH (10:00)
[2019-09-04] MEDS ORDERED: SPIRONOLACTONE 25 MG TABLET PO SCH (10:00)
--- NOTE | 2019-09-04 10:34 | PDOC DISCHARGE SUMMARY ---
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 Is this a current diagnosis for this admission?: Yes (5) Portal hypertension Is this a current diagnosis for this admission?: Yes (6) Alcohol abuse Is this a current diagnosis for this admission?: Yes (7) Elevated lipase Is this a current diagnosis for this admission?: Yes - Additional Information Discharge Diet: Other (Comments) - Low-sodium diet Discharge Activity: Activity As Tolerated Referrals: BLANCA DAILY PA-C [Primary Care Provider] - (Follow-up within 1 week) Prescriptions: Spironolactone [Aldactone 25 mg Tablet] 50 mg PO BID #120 tablet Folic Acid [Folvite 1 mg Tablet] 1 mg PO DAILY #30 tablet Potassium Chloride [K-Tab ER] 20 meq PO BID 14 Days #28 tablet.er Furosemide [Lasix 20 mg Tablet] 20 mg PO BID #60 tablet Thiamine HCl [Thiamine 100 mg Tablet] 100 mg PO DAILY #30 tablet Home Medications: Folic Acid [Folvite 1 mg Tablet] 1 mg PO DAILY #30 tablet 09/04/19 Furosemide [Lasix 20 mg Tablet] 20 mg PO BID #60 tablet 09/04/19 Potassium Chloride [K-Tab ER] 20 meq PO BID 14 Days #28 tablet.er 09/04/19 Spironolactone [Aldactone 25 mg Tablet] 50 mg PO BID #120 tablet 09/04/19 Thiamine HCl [Thiamine 100 mg Tablet] 100 mg PO DAILY #30 tablet 09/04/19 History of Present Illiness History of Present Illness: MARIAH CHOU is a 49 year old male Past medical history of alcohol dependency presenting to ED complaining of worsening shortness of breath, lower extremity edema and abdominal distention. Patient is a lifelong heavy drinker, drinks about 3 glasses of wine per night. Today he went to see his PCP and was told that he may not live for a week if he does not go to ED therefore he presented to ED. Patient stated that he did stop alcohol for 4 days however his lower extremity edema did not improve, he is stating that his abdomen is very uncomfortable, and he cannot lay flat because he gets short of breath, patient denies any abdominal pain, is not nauseous however feels very full, denies any fever, chills, chest pain, diarrhea, constipation or any urinary symptoms. Patient is alert and oriented x4, does not appear to be in acute respiratory distress however seems very uncomfortable and anxious, denies any visual or auditory hallucination or formication. Patient currently does not work, living with his mother. Hospital Course Hospital Course: Patient was admitted for evaluation of fluid overload state from [facility]. Upon admission abdominal CT revealed fatty infiltration of the liver as well as ascites and signs of portal hypertension. Blood work revealed elevated liver enzymes, hyperbilirubinemia, hypoalbuminemia. INR was within normal limits. Given constellation of findings, as well as patient's history of alcohol abuse, it was likely that patient was suffering from alcoholic hepatitis as well as underlying chronic liver disease with portal hypertension. Patient was taken for paracentesis with removal of 2 L of fluid. SAAG was > 1.1 with total scotty toneal fluid protein of 1.5 consistent with chronic liver disease/cirrhosis. Patient was started on spironolactone and Lasix IV and has now been converted to spironolactone 50 mg twice daily with p.o. Lasix 20 mg twice daily. Patient's Maddrey discriminant factor was 27 and as such did not require any glucocorticoids for treatment of his alcoholic hepatitis. He was managed with supportive care. Patient was also treated for hypokalemia with aggressive supplementation. He has been placed on oral supplements and hopefully his Aldactone should help also minimize recurrence. At this time patient is stable and is being discharged home. He has been communicated to patient to refrain from alcohol which he states he is willing to. However he has declined referrals for alcohol rehab and states that he can quit on his own. He has been advised on 1500 mg sodium restriction daily and that he needs to have a repeat basic metabolic panel done in 1 week which he will follow-up with his PCP for. Physical Exam Vital Signs: Temp Pulse Resp BP Pulse Ox 98.1 F 95 18 107/63 96 09/03/19 19:34 09/04/19 07:00 09/03/19 19:34 09/03/19 19:34 09/03/19 19:34 Intake & Output 09/03/19 09/04/19 09/05/19 06:59 06:59 06:59 Intake Total 1060 750 Output Total 2700 2650 Balance -1640 -1900 Weight 84.4 kg 85.3 kg General appearance: PRESENT: no acute distress, cooperative Neck exam: ABSENT: JVD GI/Abdominal exam: PRESENT: ascites, normal bowel sounds, soft. ABSENT: rebound, rigid, tenderness Neurological exam: PRESENT: alert, awake, oriented to person, oriented to place, oriented to time, oriented to situation Skin exam: PRESENT: jaundice Results Laboratory Results: WBC 6.0 10^3/uL (4.0-10.5) 09/02/19 05:40 RBC 2.74 10^6/uL (4.35-5.55) L 09/02/19 05:40 Hgb 9.7 g/dL (13.5-17.0) L 09/02/19 05:40 Hct 28.3 % (37.9-51.0) L 09/02/19 05:40 MCV 103 fl (80-97) H 09/02/19 05:40 MCH 35.4 pg (27.0-33.4) H 09/02/19 05:40 MCHC 34.3 g/dL (32.0-36.0) 09/02/19 05:40 RDW 21.3 % (11.5-14.0) H 09/02/19 05:40 Plt Count 204 10^3/uL (150-450) 09/02/19 05:40 Lymph % (Auto) 21.4 % (13-45) 09/02/19 05:40 [place] % (Auto) 13.4 % (3-13) H 09/02/19 05:40 Eos % (Auto) 1.5 % (0-6) 09/02/19 05:40 Baso % (Auto) 0.6 % (0-2) 09/02/19 05:40 Absolute Neuts (auto) 3.8 10^3/uL (1.7-8.2) 09/02/19 05:40 Absolute Lymphs (auto) 1.3 10^3/uL (0.5-4.7) 09/02/19 05:40 Absolute Monos (auto) 0.8 10^3/uL (0.1-1.4) 09/02/19 05:40 Absolute Eos (auto) 0.1 10^3/uL (0.0-0.6) 09/02/19 05:40 Absolute Basos (auto) 0.0 10^3/uL (0.0-0.2) 09/02/19 05:40 Total Counted 100 09/01/19 04:45 Seg Neutrophils % 63.1 % (42-78) 09/02/19 05:40 Seg Neuts % (Manual) 76 % (42-78) 09/01/19 04:45 Lymphocytes % (Manual) 9 % (13-45) L 09/01/19 04:45 Atypical Lymphs % 1 % (0) 09/01/19 04:45 Monocytes % (Manual) 7 % (3-13) 09/01/19 04:45 Eosinophils % (Manual) 4 % (0-6) 09/01/19 04:45 Basophils % (Manual) 3 % (0-2) H 09/01/19 04:45 Abs Neuts (Manual) 4.4 10^3/uL (1.7-8.2) 09/01/19 04:45 Abs Lymphs (Manual) 0.6 10^3/uL (0.5-4.7) 09/01/19 04:45 Abs Monocytes (Manual) 0.4 10^3/uL (0.1-1.4) 09/01/19 04:45 Absolute Eos (Manual) 0.2 10^3/uL (0.0-0.6) 09/01/19 04:45 Abs Basophils (Manual) 0.2 10^3/uL (0.0-0.2) 09/01/19 04:45 Platelet Comment ADEQUATE 09/01/19 04:45 Anisocytosis 3+ 09/01/19 04:45 Macrocytosis 1+ 09/01/19 04:45 Target Cells SLIGHT 09/01/19 04:45 Ovalocytes SLIGHT 09/01/19 04:45 PT 16.2 SEC (11.4-15.4) H 09/01/19 04:45 INR 1.29 09/01/19 04:45 Sodium 138.6 mmol/L (137-145) 09/04/19 05:02 Potassium 4.1 mmol/L (3.6-5.0) 09/04/19 05:02 Chloride 105 mmol/L (98-107) 09/04/19 05:02 Carbon Dioxide 27 mmol/L (22-30) 09/04/19 05:02 Anion Gap 7 (5-19) 09/04/19 05:02 BUN 14 mg/dL (7-20) 09/04/19 05:02 Creatinine 0.68 mg/dL (0.52-1.25) 09/04/19 05:02 Est GFR ( Amer) > 60 (>60) 09/04/19 05:02 Est GFR (MDRD) Non-Af > 60 (>60) 09/04/19 05:02 Glucose 92 mg/dL (75-110) 09/04/19 05:02 Calcium 7.7 mg/dL (8.4-10.2) L 09/04/19 05:02 Magnesium 2.1 mg/dL (1.6-2.3) D 09/04/19 05:02 Total Bilirubin 5.7 mg/dL (0.2-1.3) H 09/04/19 05:02 Direct Bilirubin 3.9 mg/dL (0.0-0.4) H 09/04/19 05:02 Neonat Total Bilirubin Not Reportable 09/04/19 05:02 Neonat Direct Bilirubin Not Reportable 09/04/19 05:02 Neonat Indirect Bili Not Reportable 09/04/19 05:02 AST 119 U/L (17-59) H 09/04/19 05:02 ALT 57 U/L (<50) H 09/04/19 05:02 Alkaline Phosphatase 108 U/L (38-126) 09/04/19 05:02 Ammonia < 8.7 umol/L (9-33) L 08/31/19 12:14 Troponin I < 0.012 ng/mL 08/31/19 11:53 Total Protein 6.2 g/dL (6.3-8.2) L 09/04/19 05:02 Albumin 2.9 g/dL (3.5-5.0) L 09/04/19 05:02 Lipase 845.8 U/L (23-300) H 09/02/19 05:40 Urine Color LAKEISHA 08/31/19 16:45 Urine Appearance CLEAR 08/31/19 16:45 Urine pH 6.0 (5.0-9.0) 08/31/19 16:45 Ur Specific [place] > 1.060 08/31/19 16:45 Urine Protein 30 mg/dL (NEGATIVE) H 08/31/19 16:45 Urine Glucose (UA) NEGATIVE mg/dL (NEGATIVE) 08/31/19 16:45 Urine Ketones TRACE mg/dL (NEGATIVE) H 08/31/19 16:45 Urine Blood NEGATIVE (NEGATIVE) 08/31/19 16:45 Urine Nitrite NEGATIVE (NEGATIVE) 08/31/19 16:45 Urine Bilirubin MODERATE (NEGATIVE) H 08/31/19 16:45 Urine Urobilinogen 4.0 mg/dL (<2.0) H 08/31/19 16:45 Ur Leukocyte Esterase NEGATIVE (NEGATIVE) 08/31/19 16:45 Urine WBC (Auto) 4 /HPF 08/31/19 16:45 Urine RBC (Auto) 2 /HPF 08/31/19 16:45 Urine Bacteria (Auto) TRACE /HPF 08/31/19 16:45 Urine Mucus (Auto) RARE /LPF 08/31/19 16:45 Urine Ascorbic Acid NEGATIVE (NEGATIVE) 08/31/19 16:45 Fluid Type PERITONEAL 09/01/19 11:13 Fluid Source ASCITES 09/01/19 11:13 Fluid Color YELLOW 09/01/19 11:13 Fluid Appearance CLEAR 09/01/19 11:13 Fluid Viscosity LIQUID 09/01/19 11:13 Fluid WBC 51 /uL 09/01/19 11:13 Fluid RBC 840 /uL 09/01/19 11:13 Fluid Seg Neutrophils 31 % 09/01/19 11:13 Fluid Lymphocytes 67 % 09/01/19 11:13 Fluid Monocytes 0 % 09/01/19 11:13 Fluid Eosinophils 0 % 09/01/19 11:13 Fluid Basophils 2 % 09/01/19 11:13 Fluid Total Protein 1.5 g/dL (.) 09/01/19 11:13 Fluid LDH 130 IU/L (.) 09/01/19 11:13 Hepatitis A IgM Ab Negative (Negative) 09/01/19 04:45 Hep Bs Antigen Negative (Negative) 09/01/19 04:45 Hep B Core IgM Ab Negative (Negative) 09/01/19 04:45 Hepatitis C Antibody 0.1 s/co ratio (0.0-0.9) 09/01/19 04:45 08/31/19 11:53 Troponin I < 0.012 Impressions: Abdomen/Pelvis CT 08/31/19 14:07 IMPRESSION: Hepatomegaly with marked decreased attenuation of the liver from fatty infiltration. Ascites and recannulized umbilical vein from portal hypertension Moderate right, trace left pleural effusion Paracentesis Ultrasound 09/01/19 16:10 IMPRESSION: SUCCESSFUL ULTRASOUND GUIDED PARACENTESIS. Plan Time Spent: Less than 30 Minutes Stroke Is this a Stroke Patient?: No Acute Heart Failure - Is this a Heart Failure Patient?: No
[2019-09-04 11:16] VITALS: BP 111/82
== END 2019-09-04 12:41 | disposition home or self-care (01) | DRG 432 ==
LOC: ER 11:25 → EH 15:57 → 3N 17:20 → 3W 09-01 05:40
PROVIDERS: ADMIT Internal Medicine; ATTEND Internal Medicine
PROC: 0W9G3ZX Drainage of Peritoneal Cavity, Percutaneous Approach, Diagnostic (ICD-10-PCS; principal; 2019-09-01)
DX: K70.11 Alcoholic hepatitis with ascites (principal); K72.00 Acute and subacute hepatic failure without coma; K85.90 Acute pancreatitis without necrosis or infection, unspecified; I10 Essential (primary) hypertension; E87.6 Hypokalemia; F10.20 Alcohol dependence, uncomplicated; F17.210 Nicotine dependence, cigarettes, uncomplicated; Y90.9 Presence of alcohol in blood, level not specified
CPT/HCPCS: 36415; 49083; 74177; 80053; 80074; 81001; 82140; 83615; 83690; 83735; 84157; 84484; 85025; 85610; 87015; 87116; 87206; 87252; 89050; 93005; 93010; 94660; 96360; 99285; C9113; J1644; J1940; J2060; J3475; J3480; J7030